=== PATIENT | male | born 1975 | race Caucasian/White ===

== ENCOUNTER 2016-06-30 07:32 | Emergency (ER) | payer OTHER ==
[~2016-06-30] VITALS: Ht 177.8 cm; Wt 77.1 kg
[~2016-06-30 07:32] MED LIST: BUSP10TA PO; BUSP5TAB PO; CARI250T PO; Enoxaparin Sodium SQ; Fentanyl TD; HYDR-2666 PO; OXYC30TA21 PO; TRAZ100T12 PO; VILA40TA PO; WARF7.5T PO
[2016-06-30] MEDS ORDERED: FENTANYL PF 100 MCG/2 ML VIAL. IV ONE (08:30)
[2016-06-30] MEDS ORDERED: ONDANSETRON PF 4 MG/2 ML VIAL. IV ONE (08:30)
[2016-06-30] MEDS ORDERED: IV NORMAL SALINE 1000ML BAG 1,000 ML IV ONE (08:30)
[2016-06-30] MEDS ORDERED: KETOROLAC TROMETHAMINE 30 MG/ML SYRINGE. IV ONE (08:30)
[2016-06-30 08:51] LABS: CALCIUM 8.7 mg/dL (8.5-10.1); CREATININE 1.2 mg/dL (0.7-1.3); GFR 66.7; POTASSIUM 3.5 mmol/L (3.5-5.1)
[2016-06-30 08:57] LABS: ALBUMIN 3.8 g/dL (3.4-5.0); ALBUMIN/GLOBULIN RATIO 1.3 (1.0-1.7); TOTAL BILIRUBIN 0.3 mg/dL (0.2-1.0); TOTAL PROTEIN 6.8 g/dL (6.4-8.2)
[2016-06-30 09:00] LABS: BASO % 1 % (0-3); BILIRUBIN,URINE NEGATIVE (NEG); EOS % 2 % (0-3); GLUCOSE,URINE NEGATIVE (NEG); HEMATOCRIT 41.3 % (39.0-53.0); HEMOGLOBIN 13.8 g/dL (13.0-17.5); LYMPH # 2.1 x10^3/uL (1.0-4.8); LYMPH % 28 % (24-48); MEAN CORPUSCULAR HEMOGLOBIN 30 pg (25-35); MEAN CORPUSCULAR HGB CONC 33 g/dL (31-37); MEAN CORPUSCULAR VOLUME 91 fL (79-100); MONO % 10 % (0-9); NEUT % 60 % (31-73); NITRITE,URINE NEGATIVE (NEG); PH,URINE 5.5; PLATELET COUNT 175 x10^3/uL (140-400); PROTEIN,URINE NEGATIVE (NEG-TRACE); RED BLOOD COUNT 4.53 x10^6/uL (4.30-5.70); RED CELL DISTRIBUTION WIDTH 13.3 % (11.5-14.5); UROBILINOGEN,URINE 0.2 mg/dL (0.2 mg/dL); WHITE BLOOD COUNT 7.3 x10^3/uL (4.0-11.0)
[2016-06-30 09:09] LABS: BACTERIA,URINE 0 /HPF (0-FEW); RBC,URINE >40 /HPF (0-2); WBC,URINE OCC /HPF (0-4)
[2016-06-30 09:10] LABS: SQUAMOUS EPITHELIAL CELL,UR OCC /LPF
--- NOTE | 2016-06-30 09:23 | RAD ---
Indication left flank pain. History of kidney stones. Noncontrast images through the abdomen and pelvis were obtained. Note is made of a previous examination 12/01/2011. The lung bases are essentially unremarkable. There is a 1 to 2 mm nodule in the lingula, image 7 series 2. A neuro stimulating device is noted. The liver and spleen appear unremarkable and the gallbladder appears grossly normal. No pancreatic abnormality is seen. There are no adrenal masses. There is a minute right renal calculus. There is no significant hydronephrosis on either side. There is no significant hydroureter. There is a small, 1 to 2 mm, calculus either impacted at the left UVJ or recently passed into the urinary bladder. Again there is no significant hydronephrosis or hydroureter on the left side. Additional calcifications, compatible with phleboliths, are noted in the pelvis. No additional finding is seen in the abdomen or pelvis. A unilateral pars defect is noted at L5. There is very minimal anterolisthesis of L5 relative to S1. IMPRESSION: 1 to 2 mm calculus either impacted at the left UVJ or recently passed into the urinary bladder. There is no significant hydronephrosis or hydroureter seen side. Minute 1 to 2 mm right renal calculus. Minute, 1 to 2 mm, pulmonary nodule in the lingula. Follow-up imaging along the lines of the Fleischner criteria should be considered. Nodules detected incidentally at non-screening CT Nodule size (mm) less than or equal to 4 Low Risk patients- no follow-up needed High Risk patients- follow-up at 12 months and if no change, no further imaging needed. Nodule size > 4-6 mm Low risk patients- follow- up at 12 months and if no change, no further imaging needed High risk patients- initial follow-up CT at 6-12 months and then at 18-24 months if no change. Nodule Size > 6-8 mm Low risk patients- initial follow-up CT at 6-12 months and then at 18-24 months if no change. High risk patients- initial follow- up CT at 3-6 months and then at 9-12 months if no change, Nodule Size >8 mm Either low or high risk patients: Follow-up CT at around 3, 9 and 24 [address], PET, and/or biopsy Note: newly detected indeterminate nodule in person 35 years of age or older. Low risk patients- minimal or absent history of smoking and/or other known risk factors. High risk patients- history of smoking or of other known risk factors. PQRS Compliance Statement: One or more of the following individualized dose reduction techniques were utilized for this examination: 1. Automated exposure control 2. Adjustment of the mA and/or kV according to patient size 3. Use of iterative reconstruction technique
[2016-06-30 09:30] VITALS: BP 125/81
[2016-06-30] MEDS ORDERED: TAMS0.4C97 PO (09:39)
[2016-06-30] MEDS ORDERED: OXYC-323 PO (09:39)
[2016-06-30] MEDS ORDERED: CIPR500T94 PO (09:39)
[2016-06-30] MEDS ORDERED: ONDA4TAB7 PO (09:39)
--- NOTE | 2016-06-30 09:40 | PHYS DOC ---
Past Medical History Past Medical History: Hypertension, Other Additional Past Medical Histor: CHRONIC BACK PAIN. Past Surgical History: Appendectomy, Other Additional Past Surgical Histo: back stimulator, vasectomy, wisdom, inguinal hernia repair Alcohol Use: Occasionally Drug Use: Marijuana Adult General Chief Complaint Chief Complaint: FLANK PAIN [facility] HPI 41-year-old male presents with 2 day history of left flank pain. He states the pain has intensified over the last several hours. He denies any fever chills sweats nausea vomiting or gross hematuria. He states he was seen back in March or April with a similar episode and was seen at [facility]. He thinks that they told him he had kidney stones at that time. He is not had any follow-up in that regard.] Review of Systems Review of Systems Constitutional: Denies fever or chills [] Eyes: Denies change in visual acuity, redness, or eye pain [] HENT: Denies nasal congestion or sore throat [] Respiratory: Denies cough or shortness of breath [] Cardiovascular: No additional information not addressed in HPI [] GI: Denies abdominal pain, nausea, vomiting, bloody stools or diarrhea [] : Denies dysuria or hematuria [] Musculoskeletal: Denies back pain or joint pain [] Integument: Denies rash or skin lesions [] Neurologic: Denies headache, focal weakness or sensory changes [] Endocrine: Denies polyuria or polydipsia [] Current Medications Current Medications Current Medications Medications (Trade) Dose Ordered Sig/Isabella Start Time Stop Time Status Last Admin Dose Admin Fentanyl Citrate 50 mcg 50 mcg 1X ONCE 06/30/16 08:30 06/30/16 08:31 DC 06/30/16 08:33 50 MCG Ketorolac Tromethamine (Toradol) 30 mg 1X ONCE 06/30/16 08:30 06/30/16 08:31 DC 06/30/16 08:33 30 MG Ondansetron HCl (Zofran) 4 mg 1X ONCE 06/30/16 08:30 06/30/16 08:31 DC 06/30/16 08:33 4 MG Sodium Chloride (Iv Sodium Chloride 0.9% 1000ml Bag) 1,000 ml @ 1,000 mls/hr 1X ONCE 06/30/16 08:30 06/30/16 09:29 DC 06/30/16 08:33 1,000 MLS/HR Allergies Allergies Allergies Coded Allergies Type Severity Reaction Last Updated Verified No Known Drug Allergies 12/02/13 No Physical Exam Physical Exam Constitutional: Well developed, well nourished, no acute distress, non-toxic appearance. [] HENT: Normocephalic, atraumatic, bilateral external ears normal, oropharynx moist, no oral exudates, nose normal. [] Eyes: PERRLA, EOMI, conjunctiva normal, no discharge. [] Neck: Normal range of motion, no tenderness, supple, no stridor. [] Cardiovascular:Heart rate regular rhythm, no murmur [] Lungs & Thorax: Bilateral breath sounds clear to auscultation [] Abdomen: Bowel sounds normal, soft, no tenderness, no masses, no pulsatile masses. [] Skin: Warm, dry, no erythema, no rash. [] Back: No tenderness, no CVA tenderness. [] Extremities: No tenderness, no cyanosis, no clubbing, ROM intact, no edema. [] Neurologic: Alert and oriented X 3, normal motor function, normal sensory function, no focal deficits noted. [] Psychologic: Affect normal, judgement normal, mood normal. [] Current Patient Data Vital Signs Vital Signs Date Time Temp Pulse Resp B/P Pulse Ox O2 Delivery O2 Flow Rate FiO2 06/30/16 08:33 14 06/30/16 07:40 98.1 60 139/85 98 Room Air 98.1 Lab Values Laboratory Tests Test 06/30/16 08:25 White Blood Count 7.3x10^3/uL (4.0-11.0) Red Blood Count 4.53x10^6/uL (4.30-5.70) Hemoglobin 13.8g/dL (13.0-17.5) Hematocrit 41.3% (39.0-53.0) Mean Corpuscular Volume 91fL (79-100) Mean Corpuscular Hemoglobin 30pg (25-35) Mean Corpuscular Hemoglobin Concent 33g/dL (31-37) Red Cell Distribution Width 13.3% (11.5-14.5) Platelet Count 175x10^3/uL (140-400) Neutrophils (%) (Auto) 60% (31-73) Lymphocytes (%) (Auto) 28% (24-48) Monocytes (%) (Auto) 10% (0-9) H Eosinophils (%) (Auto) 2% (0-3) Basophils (%) (Auto) 1% (0-3) Neutrophils # (Auto) 4.3x10^3uL (1.8-7.7) Lymphocytes # (Auto) 2.1x10^3/uL (1.0-4.8) Monocytes # (Auto) 0.7x10^3/uL (0.0-1.1) Eosinophils # (Auto) 0.1x10^3/uL (0.0-0.7) Basophils # (Auto) 0.0x10^3/uL (0.0-0.2) Urine Collection Type Unknown Urine Color Yellow Urine Clarity Clear Urine pH 5.5 Urine Specific [place] 1.010 Urine Protein Negativemg/dL (NEG-TRACE) Urine Glucose (UA) Negativemg/dL (NEG) Urine Ketones (Stick) Negativemg/dL (NEG) Urine Blood Large (NEG) Urine Nitrite Negative (NEG) Urine Bilirubin Negative (NEG) Urine Urobilinogen Dipstick 0.2mg/dL (0.2 mg/dL) Urine Leukocyte Esterase Negative (NEG) Urine RBC >40/HPF (0-2) Urine WBC Occ/HPF (0-4) Urine Squamous Epithelial Cells Occ/LPF Urine Bacteria 0/HPF (0-FEW) Urine Mucus Slight/LPF Sodium Level 143mmol/L (136-145) Potassium Level 3.5mmol/L (3.5-5.1) Chloride Level 106mmol/L (98-107) Carbon Dioxide Level 28mmol/L (21-32) Anion Gap 9 (6-14) Blood Urea Nitrogen 7mg/dL (8-26) L Creatinine 1.2mg/dL (0.7-1.3) Estimated GFR (Cockcroft-Gault) 66.7 BUN/Creatinine Ratio 6 (6-20) Glucose Level 106mg/dL (70-99) H Calcium Level 8.7mg/dL (8.5-10.1) Total Bilirubin 0.3mg/dL (0.2-1.0) Aspartate Amino Transferase (AST) 35U/L (15-37) Alanine Aminotransferase (ALT) 81U/L (16-63) H Alkaline Phosphatase 83U/L (46-116) Total Protein 6.8g/dL (6.4-8.2) Albumin 3.8g/dL (3.4-5.0) Albumin/Globulin Ratio 1.3 (1.0-1.7) Lipase 131U/L (73-393) Laboratory Tests 06/30/16 08:25 Laboratory Tests 06/30/16 08:25 EKG EKG [] Radiology/Procedures Radiology/Procedures [] Impressions: PROCEDURE: ABDOMEN PELVIS WO CONTRAST Indication left flank pain. History of kidney stones. Noncontrast images through the abdomen and pelvis were obtained. Note is made of a previous examination 12/01/2011. The lung bases are essentially unremarkable. There is a 1 to 2 mm nodule in the lingula, image 7 series 2. A neuro stimulating device is noted. The liver and spleen appear unremarkable and the gallbladder appears grossly normal. No pancreatic abnormality is seen. There are no adrenal masses. There is a minute right renal calculus. There is no significant hydronephrosis on either side. There is no significant hydroureter. There is a small, 1 to 2 mm, calculus either impacted at the left UVJ or recently passed into the urinary bladder. Again there is no significant hydronephrosis or hydroureter on the left side. Additional calcifications, compatible with phleboliths, are noted in the pelvis. No additional finding is seen in the abdomen or pelvis. A unilateral pars defect is noted at L5. There is very minimal anterolisthesis of L5 relative to S1. IMPRESSION: 1 to 2 mm calculus either impacted at the left UVJ or recently passed into the urinary bladder. There is no significant hydronephrosis or hydroureter seen side. Course & Med Decision Making Course & Med Decision Making Pertinent Labs and Imaging studies reviewed. (See chart for details) [] Dragon Disclaimer Dragon Disclaimer This electronic medical record was generated, in whole or in part, using a voice recognition dictation system. Departure Departure Impression: Primary Impression: Ureteral stone Disposition: 01 HOME, SELF-CARE Condition: IMPROVED Referrals: RITCHIE MCKEON DO (PCP) LARISSA CRAIN DO Follow with Dr. Crain in 3-5 days to discuss definitive treatment of recurrent kidney stones Patient Instructions: Diet for Kidney Stones, Kidney Stones Additional Instructions: Thank you for allowing us to participate in your care today. Followup with your primary care physician in 3 days if your symptoms do not improve. Return to the emergency department you have any new or concerning findings. This should be evaluated by the primary care physician and any necessary consulting services for continued management within a few days after discharge. Return to emergency room if you have any new or concerning symptoms including but not limited to fever, chills, nausea, vomiting, intractable pain, any new rashes, chest pain, shortness of air, uncontrolled bleeding, difficulty breathing, and/or vision loss. You may have been prescribed medication that can change in your level of thinking and ability to operate machinery. These medications include hydrocodone and Ativan. Also, Benadryl has been known to do this as well. Be sure to check with your pharmacist and ask if the medications you've prescribed can affect your level of consciousness. I recommend not operating heavy machinery or driving while on medication such as these. Scripts Ciprofloxacin Hcl (Cipro)500 Mg Tablet1 Tab PO BID PRN UTI #20 TAB Prov:MECHELLE ROCHA DO 06/30/16 Ondansetron Hcl (Zofran)4 Mg Tablet1 Tab PO Q8HRS PRN NAUSEA #20 TAB Prov:MECHELLE ROCHA DO 06/30/16 Oxycodone/Apap 5-325 (Percocet 5-325 Mg Tablet)1 Each Tablet1 Tab PO PRN Q6HRS PRN PAIN #20 TAB Prov:MECHELLE ROCHA DO 06/30/16 Tamsulosin Hcl (Flomax)0.4 Mg Cap.er.24h1 Cap PO DAILY kidney stones #30 CAP Ref 11 Prov:MECHELLE ROCHA DO 06/30/16 MECHELLE ROCHA DO Jun 30, 2016 09:40
== END 2016-06-30 09:58 | disposition home or self-care (01) ==
LOC: ER 07:32
DX: N20.1 Calculus of ureter (principal); G89.29 Other chronic pain; F12.10 Cannabis abuse, uncomplicated; I10 Essential (primary) hypertension; Z90.49 Acquired absence of other specified parts of digestive tract
CPT/HCPCS: 36415; 74176; 80053; 81001; 83690; 85027; 96361; 96374; 96375; 99285; J1885; J2405; J3010; J7030

== ENCOUNTER 2017-02-02 03:03 | Emergency (ER) | payer OTHER ==
[~2017-02-02] VITALS: Ht 175.3 cm; Wt 79.4 kg
[~2017-02-02 03:03] MED LIST changes: +CIPR500T94 PO; -HYDR-2666 PO; +HYDR-2758 PO; +ONDA4TAB7 PO; +OXYC-323 PO; +TAMS0.4C97 PO; -WARF7.5T PO; +WARF7.5T48 PO
[2017-02-02] MEDS ORDERED: IV NORMAL SALINE 1000ML BAG 1,000 ML IV ONE ×2 (04:00→05:30)
[2017-02-02] MEDS ORDERED: HYDROmorphone 2 MG/ML VIAL IV ONE ×2 (04:00→05:30)
[2017-02-02] MEDS ORDERED: ONDANSETRON PF 4 MG/2 ML VIAL. IV ONE (04:00)
[2017-02-02] MEDS ORDERED: KETOROLAC 15 MG/ML VIAL. IV ONE (04:00)
[2017-02-02 04:20] LABS: BASO # 0.1 x10^3/uL (0.0-0.2); BASO % 1 % (0-3); EOS % 2 % (0-3); HEMATOCRIT 40.9 % (39.0-53.0); HEMOGLOBIN 13.7 g/dL (13.0-17.5); LYMPH % 39 % (24-48); MEAN CORPUSCULAR HEMOGLOBIN 31 pg (25-35); MEAN CORPUSCULAR HGB CONC 34 g/dL (31-37); MEAN CORPUSCULAR VOLUME 92 fL (79-100); MONO % 10 % (0-9); NEUT % 49 % (31-73); PLATELET COUNT 245 x10^3/uL (140-400); RED BLOOD COUNT 4.46 x10^6/uL (4.30-5.70); RED CELL DISTRIBUTION WIDTH 13.8 % (11.5-14.5); WHITE BLOOD COUNT 10.2 x10^3/uL (4.0-11.0)
[2017-02-02 04:21] LABS: BILIRUBIN,URINE SMALL (NEG); GLUCOSE,URINE NEGATIVE (NEG); NITRITE,URINE NEGATIVE (NEG); PH,URINE 5.5; PROTEIN,URINE 30 mg/dL (NEG-TRACE); UROBILINOGEN,URINE 0.2 mg/dL (0.2 mg/dL)
[2017-02-02 04:34] LABS: BACTERIA,URINE 0 /HPF (0-FEW)
[2017-02-02 04:35] LABS: SQUAMOUS EPITHELIAL CELL,UR OCC /LPF
[2017-02-02 04:37] LABS: CREATININE 1.2 mg/dL (0.7-1.3); GFR 66.7; POTASSIUM 3.8 mmol/L (3.5-5.1)
--- NOTE | 2017-02-02 04:40 | RAD ---
INDICATION: rt.flank pain
COMPARISON: None. TECHNIQUE: Axial CT images were obtained through the abdomen and pelvis without intravenous contrast. Limited assessment of solid organ structures and vasculature secondary to lack of intravenous contrast. One or more of the following individualized dose reduction techniques were utilized for this examination: 1. Automated exposure control; 2. Adjustment of the mA and/or kV according to patient size; 3. Use of iterative reconstruction technique. FINDINGS: Linear opacity right lower lung, could be from scarring or atelectasis. Abdominal aorta is not grossly aneurysmal. Stimulator leads are seen extending into the thoracic spinal canal. No intrahepatic bile duct dilation. No peripancreatic edema. Spleen is unremarkable. No left-sided hydronephrosis. Mild right-sided hydronephrosis with 4 mm calcification at expected location right ureterovesicular junction. Surgical clip right side of abdomen. Pars defect L5 on the left IMPRESSION: 1. Right-sided hydronephrosis with right distal ureter stone. Electronically signed by: Brandon Dawn MD (02/02/2017 4:36 AM) [id number]
[2017-02-02 04:43] LABS: ALBUMIN 3.7 g/dL (3.4-5.0); ALBUMIN/GLOBULIN RATIO 1.1 (1.0-1.7); TOTAL BILIRUBIN 0.3 mg/dL (0.2-1.0)
[2017-02-02] MEDS ORDERED: TAMSULOSIN 0.4 MG CAP.ER.24H. PO ONE (05:30)
[2017-02-02] MEDS ORDERED: TAMS0.4C97 PO (05:32)
[2017-02-02] MEDS ORDERED: IBUP-1007 PO (05:32)
[2017-02-02] MEDS ORDERED: HYDR-971 PO (05:32)
--- NOTE | 2017-02-02 05:32 | PHYS DOC ---
Past Medical History Past Medical History: Anxiety, Depression, High Cholesterol, Hypertension, Kidney Stone, Other Additional Past Medical Histor: CHRONIC BACK PAIN. Past Surgical History: Appendectomy, Other Additional Past Surgical Histo: back stimulator, vasectomy, wisdom, inguinal hernia repair Alcohol Use: Occasionally Drug Use: Marijuana Adult General Chief Complaint Chief Complaint: FLANK PAIN HPI HPI Patient is a 41 year old gentleman with a history significant for kidney stones , hypertension, pulmonary embolism, appendectomy, nerve stimulator in his back who presents here today complaining of right flank pain that started earlier today and colicky and intermittent in nature. Patient has any fevers shakes chills. Patient reports she's been nauseous and had vomiting episodes. Patient denies any diarrhea. Patient does admit to dysuria frequency and urgency as well as hematuria. Patient reports he is no longer on blood thinners for at least a year and a half now. Patient reports pain is having today is similar to his prior kidney stone pain and a prior PE pain. Constitutional: Denies fever or chills Eyes: Denies change in visual acuity, redness, or eye pain All other review systems are negative except as documented in the history of present illness portion. Constitutional: Well developed, well nourished, no acute distress, non-toxic appearance. HENT: Normocephalic, atraumatic, bilateral external ears normal, oropharynx moist, no oral exudates, nose normal. Eyes: PERRLA, EOMI, conjunctiva normal, no discharge. Neck: Normal range of motion, no tenderness, supple, no stridor. Cardiovascular:Heart rate regular rhythm, Lungs & Thorax: Bilateral breath sounds clear to auscultation Abdomen: Bowel sounds normal, soft, no tenderness, no masses, no pulsatile masses. Skin: Warm, dry, no erythema, no rash. Back: No tenderness, no CVA tenderness. Extremities: No tenderness, no cyanosis, no clubbing, ROM intact, no edema. Neurologic: Alert and oriented X 3, normal motor function, normal sensory function, no focal deficits noted. Psychologic: Affect normal, judgement normal, mood normal. CT scan of his abdomen pelvis reveals a 4 mm UVJ stone with right-sided hydronephrosis. Patient's labs were all unremarkable. Assessment and plan This is a 41-year-old gentleman who presents to the ER today with history of kidney stones and PE who has signs and symptoms consistent with a right-sided kidney stone. Patient's workup in the ER significant for a CT scan that reveals a 4 mm UVJ stone with right-sided hydronephrosis. While the ER the patient received Dilaudid IV 2, Toradol, Zofran and IV fluids. Patient was also given Flomax. Patient feels comfortable the plan to be discharged home with pain medicines. Patient was instructed to follow-up either here or any ER to assist with his pain and the pain returns. Patient was informed that unfortunately we do not have urological consultation here and would likely be better served if he went to a different ER facility however if he is unable to get to different ER facility he is advised to return here today for pain management and transfer to in ER/hospital was urological consultation. Current Medications Current Medications Current Medications Medications (Trade) Dose Ordered Sig/Isabella Start Time Stop Time Status Last Admin Dose Admin Hydromorphone HCl (Dilaudid) 1 mg 1X ONCE 02/02/17 05:30 02/02/17 05:31 Ketorolac Tromethamine (Toradol) 15 mg 1X ONCE 02/02/17 04:00 02/02/17 04:28 DC 02/02/17 03:59 15 MG Ondansetron HCl (Zofran) 4 mg 1X ONCE 02/02/17 04:00 02/02/17 04:28 DC 02/02/17 03:58 4 MG Sodium Chloride 1,000 ml @ 1,000 mls/hr 1X ONCE 02/02/17 05:30 02/02/17 06:29 Tamsulosin HCl (Flomax) 0.4 mg 1X ONCE 02/02/17 05:30 02/02/17 05:31 Allergies Allergies Allergies Coded Allergies Type Severity Reaction Last Updated Verified No Known Drug Allergies 12/02/13 No Current Patient Data Vital Signs Vital Signs Date Time Temp Pulse Resp B/P (MAP) Pulse Ox O2 Delivery O2 Flow Rate FiO2 02/02/17 03:25 98.3 63 26 158/120 (133) 99 Room Air 98.3 Lab Values Laboratory Tests Test 02/02/17 03:05 02/02/17 03:20 Urine Collection Type Unknown Urine Color Yellow Urine Clarity Cloudy Urine pH 5.5 Urine Specific [place] >=1.030 Urine Protein 30 mg/dL (NEG-TRACE) Urine Glucose (UA) Negative mg/dL (NEG) Urine Ketones (Stick) Negative mg/dL (NEG) Urine Blood Large (NEG) Urine Nitrite Negative (NEG) Urine Bilirubin Small (NEG) Urine Urobilinogen Dipstick 0.2 mg/dL (0.2 mg/dL) Urine Leukocyte Esterase Negative (NEG) Urine RBC 1-2 /HPF (0-2) Urine WBC 1-4 /HPF (0-4) Urine Squamous Epithelial Cells Occ /LPF Urine Bacteria 0 /HPF (0-FEW) Urine Mucus Mod /LPF White Blood Count 10.2 x10^3/uL (4.0-11.0) Red Blood Count 4.46 x10^6/uL (4.30-5.70) Hemoglobin 13.7 g/dL (13.0-17.5) Hematocrit 40.9 % (39.0-53.0) Mean Corpuscular Volume 92 fL (79-100) Mean Corpuscular Hemoglobin 31 pg (25-35) Mean Corpuscular Hemoglobin Concent 34 g/dL (31-37) Red Cell Distribution Width 13.8 % (11.5-14.5) Platelet Count 245 x10^3/uL (140-400) Neutrophils (%) (Auto) 49 % (31-73) Lymphocytes (%) (Auto) 39 % (24-48) Monocytes (%) (Auto) 10 % (0-9) H Eosinophils (%) (Auto) 2 % (0-3) Basophils (%) (Auto) 1 % (0-3) Neutrophils # (Auto) 5.0 x10^3uL (1.8-7.7) Lymphocytes # (Auto) 4.0 x10^3/uL (1.0-4.8) Monocytes # (Auto) 1.0 x10^3/uL (0.0-1.1) Eosinophils # (Auto) 0.2 x10^3/uL (0.0-0.7) Basophils # (Auto) 0.1 x10^3/uL (0.0-0.2) Sodium Level 142 mmol/L (136-145) Potassium Level 3.8 mmol/L (3.5-5.1) Chloride Level 105 mmol/L (98-107) Carbon Dioxide Level 26 mmol/L (21-32) Anion Gap 11 (6-14) Blood Urea Nitrogen 10 mg/dL (8-26) Creatinine 1.2 mg/dL (0.7-1.3) Estimated GFR (Cockcroft-Gault) 66.7 BUN/Creatinine Ratio 8 (6-20) Glucose Level 140 mg/dL (70-99) H Calcium Level 9.0 mg/dL (8.5-10.1) Total Bilirubin 0.3 mg/dL (0.2-1.0) Aspartate Amino Transferase (AST) 35 U/L (15-37) Alanine Aminotransferase (ALT) 78 U/L (16-63) H Alkaline Phosphatase 89 U/L (46-116) Total Protein 7.0 g/dL (6.4-8.2) Albumin 3.7 g/dL (3.4-5.0) Albumin/Globulin Ratio 1.1 (1.0-1.7) Laboratory Tests 02/02/17 03:20 Laboratory Tests 02/02/17 03:20 EKG EKG [] Radiology/Procedures Radiology/Procedures [] Course & Med Decision Making Course & Med Decision Making Pertinent Labs and Imaging studies reviewed. (See chart for details) [] Dragon Disclaimer Dragon Disclaimer This electronic medical record was generated, in whole or in part, using a voice recognition dictation system. Departure Departure Impression: Primary Impression: Ureteral stone Disposition: 01 HOME, SELF-CARE Condition: IMPROVED Referrals: RITCHIE MCKEON DO (PCP) Patient Instructions: Kidney Stones Scripts Hydrocodone/Apap 5-325 (NORCO 5-325 TABLET) 1 Each Tablet 1 TAB PO QID Y for PAIN, #20 TAB Prov: YASMIN DAVIES MD 02/02/17 Ibuprofen (IBUPROFEN) 600 Mg Tablet 600 MG PO PRN Q6HRS Y for PAIN, #20 TAB Prov: YASMIN DAVIES MD 02/02/17 Tamsulosin Hcl (FLOMAX) 0.4 Mg Cap.er.24h 1 CAP PO HS, #7 CAP 11 Refills Prov: YASMIN DAVIES MD 02/02/17 YASMIN DAVIES MD Feb 02, 2017 05:32
[2017-02-02 05:46] VITALS: BP 137/83
== END 2017-02-02 06:09 | disposition home or self-care (01) ==
LOC: ER 03:03
DX: N20.1 Calculus of ureter (principal); E78.00 Pure hypercholesterolemia, unspecified; I10 Essential (primary) hypertension; G89.29 Other chronic pain; F12.10 Cannabis abuse, uncomplicated; Z87.442 Personal history of urinary calculi
CPT/HCPCS: 36415; 74176; 80053; 81001; 85025; 96361; 96374; 96375; 96376; 99285; J1170; J1885; J2405; J7030